=== PATIENT | female | born 1990 | race Caucasian/White ===

== ENCOUNTER 2018-10-27 15:41 | Outpatient (CLI) | payer MEDICAID ==
[~2018-10-27] VITALS: Ht 180.3 cm; Wt 114.5 kg
[~2018-10-27 15:41] MED LIST: AMOX1TAB12 PO; HYDR-3240 PO; IBUP-1222 PO; SERT50TA PO
[2018-10-27 16:48] LABS: MICROSCOPIC INDICATED
[2018-10-27] MEDS ORDERED: D5%-LACTATED RINGERS 1,000 ML IV SCH (16:54)
[2018-10-27] MEDS ORDERED: LACTATED RINGERS 1,000 ML IV SCH (16:54)
[2018-10-27] MEDS ORDERED: ONDANSETRON 2MG/ML, 2ML ONE (16:59)
[2018-10-27] MEDS ORDERED: ONDANSETRON 2MG/ML, 2ML IVPush PRN (17:00)
[2018-10-27] MEDS ORDERED: ONDA4TAB7 PO (21:06)
== END 2018-10-27 21:12 | disposition home or self-care (01) ==
LOC: LDOP 15:41
PROVIDERS: ATTEND Obstetrics & Gynecology
DX: O21.2 Late vomiting of pregnancy (principal); O99.513 Diseases of the respiratory system complicating pregnancy, third trimester; O99.343 Other mental disorders complicating pregnancy, third trimester; J45.909 Unspecified asthma, uncomplicated; F32.9 Major depressive disorder, single episode, unspecified; O99.283 Endocrine, nutritional and metabolic diseases complicating pregnancy, third trimester; E03.9 Hypothyroidism, unspecified; O99.353 Diseases of the nervous system complicating pregnancy, third trimester; G43.909 Migraine, unspecified, not intractable, without status migrainosus; Z3A.29 29 weeks gestation of pregnancy
CPT/HCPCS: 59025; 81001; 96361; 96374; 99201; J2405; J7120; J7121; 96360; G0463